=== PATIENT | male | born 1985 | race Two or more races ===

== ENCOUNTER → 2020-02-15 | Emergency (ER) | payer OTHER ==
[~2020-02-15] VITALS: Ht 170.2 cm; Wt 77.1 kg
[~2020-02-15] MED LIST: FOLIC ACID 1 MG, MULTIPLE VITAMIN 10 ML, MAGNESIUM SULF SDV 50% 8 MEQ, THIAMINE INJ 100... INJ SCH; FOLIC ACID INJ SCH; IBUPROFEN 800 MG TAB PO ONE; KETOROLAC TROMETH 15 mg/ml 1ML VL IV ONE; MAGNESIUM SULF INJ SCH; MULTIPLE VITAMIN INJ SCH; QUEtiapine FUMARATE 100 MG TAB PO SCH; SERTRALINE HCL 50 MG TAB PO SCH; SODIUM CHLORIDE 0.9% 1,000 ML IV ONE; THIAMINE HCL 100 MG TAB PO ONE; [UNRECOGNIZED DRUG - OTHER] INJ SCH
[2020-02-15 15:55] LABS: Urine WBC None Seen /hpf (0 - 3)
[2020-02-15 16:24] LABS: Urine Bacteria NONE SEEN /hpf (None Seen); Urine Blood Negative /uL (Negative); Urine Specific Gravity 1.002 (1.001-1.035)
[2020-02-15 16:25] LABS: Amphetamine Screen, Urine NEGATIVE (NEGATIVE); Barbiturate Scree,Urine NEGATIVE (NEGATIVE); Benzodiazephine Screen, Urine NEGATIVE (NEGATIVE); Cannabinoid Screen, Urine NEGATIVE (NEGATIVE); Cocaine Screen, Urine NEGATIVE (NEGATIVE); Opiate Scree,Urine NEGATIVE (NEGATIVE); Phencyclidine Screen, Urine NEGATIVE (NEGATIVE)
[2020-02-15 17:04] LABS: Basophils # (auto) 0 10 ^3/uL (0-0.2); Basophils % (auto) 0.9 % (0.0-2.0); Eosinophils # (auto) 0 10 ^3/uL (0-0.8); Eosinophils % (auto) 0.9 % (0.0-7.0); Hemoglobin 15.2 g/dL (13.5-17.5); Lymphocytes # (auto) 1.9 10 ^3/uL (0.4-5.4); Lymphocytes % (auto) 35.2 % (10.0-50.0); Mean Corpuscular Hemoglobin 30.1 pg (28.0-32.0); Mean Corpuscular Hgb Conc. 33.8 g/dL (32.0-36.0); Monocytes # (auto) 0.5 10 ^3/uL (0-1.3); Monocytes % (auto) 9.1 % (0.0-12.0); Neutrophils # (auto) 2.9 10 ^3/uL (1.6-8.6); Neutrophils % (auto) 53.9 % (37.0-80.0); Nucleated Red Blood Cells % 0.2 %; Platelet Count (auto) 318 10^3/uL (140-450); Red Blood Cells 5.06 10^6/uL (4.5-5.90); Red Cell Distribution Width 14.7 % (11.8-14.3); White Blood Cell 5.3 10^3/uL (4.4-10.8)
[2020-02-15 17:09] LABS: BUN/Creatinine Ratio 12.9; Calcium 8.3 mg/dL (8.5-10.1); Magnesium 2.5 mg/dL (1.6-2.6); Potassium 3.6 mmol/L (3.5-5.1)
[2020-02-15 17:10] LABS: Salicylate < 1.7 mg/dL (2.8-20.0)
[2020-02-15 17:13] LABS: Acetaminophen < 2.0 ug/mL (10-30)
[2020-02-15 17:38] LABS: Bilirubin, Total 0.3 mg/dL (0.2-1.0); Total Protein 7.7 g/dL (6.4-8.2)
[2020-02-15 17:41] LABS: Blood Alcohol 345.6 mg/dL (0-5)
[2020-02-17] MEDS: chlorproMAZINE HCL 25 MG TAB PO SCH ×2 (09:20→14:08)
[2020-02-17 13:57] VITALS: BP 114/70
== END | disposition home or self-care (01) ==
LOC: EDBD 15:26 → ER 15:26
DX: F10.129 Alcohol abuse with intoxication, unspecified (principal); R45.851 Suicidal ideations; Y90.8 Blood alcohol level of 240 mg/100 ml or more
CPT/HCPCS: 36415; 80053; 80307; 80320; 80329; 81001; 83735; 85025; 93005; 96361; 96365; 96366; 99284; J3411; J3475; J7030